=== PATIENT | male | born 1935 | race Caucasian/White ===

== ENCOUNTER → 2017-12-26 | Outpatient (CLI) | payer OTHER, BC ==
[~2017-12-26] MED LIST: ASPCH81X PO; CHOL1000 PO; CYAN500T PO; MULT-506 PO; OMEG10007 PO; ROSU40TA PO
[2017-12-26 17:45] LABS: BASO % 1.3 %; BASO ABS # 0.07 K/uL (0-0.2); EOS % 1.6 %; EOS ABS # 0.09 K/uL (0-0.5); HEMATOCRIT 47.8 % (42-52); HEMOGLOBIN 16.2 g/dL (14.0-18.0); IG# 0.02 K/uL (0.00-0.02); LYMPH % 20.5 %; LYMPH ABS # 1.13 K/uL (1.2-3.4); MEAN CELL VOLUME 92.3 fL (80-100); MEAN CORPUSCULAR HEMOGLOBIN 31.3 pg (25-34); MEAN CORPUSCULAR HGB CONC 33.9 g/dl (32-36); MEAN PLATELET VOLUME 10.1 fL (7.4-10.4); MONO % 10.4 %; MONO ABS # 0.57 K/uL (0.11-0.59); NEUT % 65.8 %; NEUT ABS # 3.62 K/uL (1.4-6.5); PLATELET COUNT 221 K/uL (130-400); RED CELL DISTRIBUTION WIDTH CV 13.4 % (11.5-14.5); RED CELL DISTRIBUTION WIDTH SD 45.3 fL (36.4-46.3)
[2017-12-26 18:05] LABS: ALBUMIN 3.5 gm/dl (3.4-5.0); ALT/SGPT 45 U/L (12-78); BLOOD UREA NITROGEN 15 mg/dl (7-18); CALCIUM 9.1 mg/dl (8.5-10.1); CARBON DIOXIDE 27 mmol/L (21-32); CHOLESTEROL 129 mg/dl (0-200); CREATININE 1.06 mg/dl (0.60-1.40); GLUCOSE 121 mg/dl (70-99); POTASSIUM 4.2 mmol/L (3.5-5.1); SODIUM 137 mmol/L (136-145)
[2017-12-26 18:08] LABS: ALKALINE PHOSPHATASE 82 U/L (45-117); AST/SGOT 21 U/L (15-37); LDL CHOLESTEROL CALCULATED 74 mg/dl; TOTAL PROTEIN 7.3 gm/dl (6.4-8.2)
[2017-12-26 18:32] LABS: HEMOGLOBIN A1C 7.2 % (4.5-5.6)
== END | disposition home or self-care (01) ==
LOC: C.LABMFLN 12:58
PROVIDERS: ATTEND Family Medicine
DX: E11.40 Type 2 diabetes mellitus with diabetic neuropathy, unspecified (principal); E78.00 Pure hypercholesterolemia, unspecified; E53.8 Deficiency of other specified B group vitamins; E55.9 Vitamin D deficiency, unspecified; R42 Dizziness and giddiness